=== PATIENT | male | born 1995 | race American Indian/Alaskan Native ===

== ENCOUNTER 2020-02-13 02:13 | Emergency (ER) | payer SELFPAY ==
[2020-02-13] MEDS ORDERED: MORPHINE 2 MG/1 ML INJ IV ONE (02:24)
[2020-02-13] MEDS ORDERED: SODIUM CHLORIDE 0.9% 1000 ML 1,000 ML IV ONE (02:24)
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
[2020-02-13] MEDS ORDERED: TETANUS,DIPHTHERIA TOXOID ADULT 0.5 ML INJ IM ONE (04:45)
[2020-02-13 04:59] VITALS: BP 133/70
== END 2020-02-13 04:50 | disposition other institution (70) ==
LOC: ED 02:13
DX: S62.611B Displaced fracture of proximal phalanx of left index finger, initial encounter for open fracture (principal); S71.102A Unspecified open wound, left thigh, initial encounter; E11.9 Type 2 diabetes mellitus without complications; J45.909 Unspecified asthma, uncomplicated; Z79.899 Other long term (current) drug therapy; Z88.8 Allergy status to other drugs, medicaments and biological substances; W34.00XA Accidental discharge from unspecified firearms or gun, initial encounter; Y93.89 Activity, other specified; Y92.89 Other specified places as the place of occurrence of the external cause; Y99.8 Other external cause status
CPT/HCPCS: 73130; 73560; 90471; 90714; 96365; 96375; 99284; J2270; J7030